=== PATIENT | male | born 1945 | race Caucasian/White ===

== ENCOUNTER 2018-05-02 06:55 | Day surgery (SDC) | payer OTHER ==
[2018-04-28 17:09] VITALS: BMI 28.0
[2018-05-02] MEDS ORDERED: oxyCODONE HCL 5 MG TABLET PO PRN (10:53)
[2018-05-02] MEDS ORDERED: ONDANSETRON 4 MG/2 ML VIAL IVPUSH PRN (10:53)
[2018-05-02] MEDS ORDERED: MIDAZOLAM HCL 2 MG/2 ML SINGLE DOSE VIAL ONE (10:57)
[2018-05-02] MEDS ORDERED: LACTATED RINGERS SOLUTION 1,000 ML IV SCH (11:00)
[2018-05-02] MEDS ORDERED: PROPOFOL 20 ML ONE (11:02)
[2018-05-02] MEDS ORDERED: ePHEDrine SULFATE 50 MG/1 ML AMPULE ONE (11:26)
--- NOTE | 2018-05-02 12:09 | OP ---
Operative Note - Note: Operative Date: 05/02/18 Pre-Operative Diagnosis: metastatic prostate cancer with right hydronephrosis with acute renal insufficiency Operation: cystoscopy/right retrograde pyelogram/right ureteroscy/right ureteral balloon dilation/right ureteral stent placement Findings: high grade distal right ureteral stricture Post-Operative Diagnosis: Same as Pre-op (right ureteral stricture) Surgeon: Jan Brown Anesthesia: General Drains & Tubes with Location: 10/17 right ureteral stent Operative Report Dictated: Yes
[2018-05-02 13:19] VITALS: TEMP 97.5
[2018-05-02 16:49] VITALS: BP 154/86; PULSE 59
--- NOTE | 2018-05-02 19:40 | OP ---
DATE OF OPERATION: 05/02/2018 PREOPERATIVE DIAGNOSES: Metastatic prostate cancer with right hydroureteronephrosis with acute renal insufficiency. POSTOPERATIVE DIAGNOSES: Metastatic prostate cancer with right hydroureteronephrosis with acute renal insufficiency, with a high-grade right ureteral stricture. ATTENDING: Pablo Stapleton MD ANESTHESIA: General. PROCEDURE: Cystoscopy, right retrograde pyelogram, right ureteroscopy, right ureteral balloon dilation, right ureteral stent placement. DESCRIPTION OF OPERATION: The patient has a history of metastatic prostate cancer. The patient developed renal insufficiency with a high-grade hydroureteronephrosis. On the CAT scan, there was no evidence of stone. There was a sharp cutoff of the ureter at the distal pelvic ureter. The patient accepts all risks and benefits for the procedure. The patient is brought in the operating room, placed in supine position on the operating room table. Anesthesia and preoperative antibiotics are administered to the patient. The patient is then placed in the dorsal lithotomy position and prepped and draped in the usual sterile manner. Cystoscopy is performed, and a mild urethral stricture is noted. The patient has a history of radiation therapy for the prostate cancer. The stricture is dilated with the scope. The bladder is inspected, and there is no evidence of stones or neoplasm within the bladder. Initially, an open-ended catheter was utilized, and a retrograde pyelogram showed a grade 4-5/5 hydroureteronephrosis with a sharp cutoff at the distal ureter. This was roughly 4 cm above the right ureteral orifice. At this point, multiple different wires were attempted without success. Ureteroscopy was then performed. Ureteroscopy brought the pinpoint opening into view, and with direct vision, the wire was passed with difficulty proximally. At this point, the wire was noted to be in the correct position within the renal pelvis as contrast material had entered the renal pelvis. With this accomplished, a balloon dilator was utilized, and the distal stricture was balloon dilated without complications. Utilizing the wire that was still in place, a 6-Thai 24-cm stent was placed utilizing the Seldinger technique over the wire. The 6-Thai 24-cm stent was found to be in excellent location on fluoroscopy. The case was concluded. Patient tolerated the procedure very well. There were no complications noted. The patient will be followed in the recovery room and ambulatory surgery. He will be discharged home if he continues to be stable. PABLO STAPLETON M.D. /[id number]
== END 2018-05-02 16:25 | disposition home or self-care (01) ==
LOC: JASU-SURG 06:55
PROVIDERS: ATTEND Urology
PROC: 0T768DZ Dilation of Right Ureter with Intraluminal Device, Via Natural or Artificial Opening Endoscopic (ICD-10-PCS; principal; 2018-05-02 10:00)
PROC: BT1DYZZ Fluoroscopy of Right Kidney, Ureter and Bladder using Other Contrast (ICD-10-PCS; 2018-05-02 10:00)
DX: C61 Malignant neoplasm of prostate (principal); N13.1 Hydronephrosis with ureteral stricture, not elsewhere classified; N28.9 Disorder of kidney and ureter, unspecified
CPT/HCPCS: 76000-TC-FY; 94760

== ENCOUNTER 2018-09-26 06:57 | Day surgery (SDC) | payer OTHER ==
[2018-09-23 15:36] VITALS: BMI 27.8
[~2018-09-26 06:57] MED LIST: IOHEXOL 300 MG/ML INFUS..BTL IV ONE
[2018-09-26] MEDS ORDERED: LIDOCAINE HCL/PF 2% SDV 5ML VIAL ONE (07:52)
[2018-09-26] MEDS ORDERED: PROPOFOL 20 ML ONE ×2 (07:52→07:53)
[2018-09-26] MEDS ORDERED: IOHEXOL 300 MG/ML INFUS..BTL IV ONE (09:05)
[2018-09-26] MEDS ORDERED: ACETAMINOPHEN 325 MG TABLET (FP) PO PRN (09:47)
[2018-09-26] MEDS ORDERED: ONDANSETRON 4 MG/2 ML VIAL IVPUSH PRN (09:47)
[2018-09-26] MEDS ORDERED: LACTATED RINGERS SOLUTION 1,000 ML IV SCH (10:00)
--- NOTE | 2018-09-26 10:24 | OP ---
Operative Note - Note: Operative Date: 09/26/18 Pre-Operative Diagnosis: metastatic prostate cancer/right ureteral stricture/ chronic kidney disease/urethral stricture Operation: cystoscopy/urethral dilation/right ureteroscopy/right ureteral stent exchange/right retrograde pyelogram Findings: urethral and right ureteral strictures Post-Operative Diagnosis: Same as Pre-op Surgeon: Jan Brown Anesthesia: General Specimens Removed: right ureteral stent Drains & Tubes with Location: 10/17 right ureteral stent Operative Report Dictated: Yes
[2018-09-26] MEDS ORDERED: ONDANSETRON 4 MG/2 ML VIAL ONE (12:26)
[2018-09-26 13:18] VITALS: BP 148/68; PULSE 66; TEMP 97.5
--- NOTE | 2018-09-26 22:26 | OP ---
DATE OF OPERATION: 09/26/2018 PREOPERATIVE DIAGNOSES: Metastatic prostate cancer, right ureteral stricture, chronic kidney disease, and urethral stricture. POSTOPERATIVE DIAGNOSES: Metastatic prostate cancer, right ureteral stricture, chronic kidney disease, and urethral stricture. PROCEDURE: Cystoscopy, urethral dilation, right ureteroscopy, right ureteral stent exchange, right retrograde pyelogram. ATTENDING: Pablo Stapleton MD ANESTHESIA: General. DESCRIPTION OF OPERATION: The patient was brought in the operating room, placed in supine position on the operating room table. The patient was given general anesthesia and preoperative antibiotics. The patient has a history of metastatic prostate cancer and is status post radiation therapy. The patient has had recurrent urethral strictures in the past. Patient also has a distal right ureteral stricture which has led to chronic kidney disease with hydronephrosis. The patient has had previous procedures involving balloon dilation of the right ureter. Patient has been maintained with a ureteral stent. The patient understands all risks and benefits of the procedure. The patient was placed in the dorsal lithotomy position, prepped and draped in the usual sterile manner. Cystoscopy was attempted. However, high-grade bulbous urethral stricture was noted. A wire was passed into the bladder under fluoroscopic visualization. At this point, dilators were utilized, and the urethra was dilated to 24-Syrian. Still with significant difficulty, cystoscopy was accomplished, and the bladder was entered. A wire was passed proximally into the right ureter. With the passage of the wire, the stricture was so tight that the wire was pushing the stent proximally. It was decided to perform an ureteroscopy in order to dilate the ureteral stricture. Initially, the stent was removed under cystoscopic visualization. With the wire in place, ureteroscopy was then performed. A dense stricture of the distal ureter was encountered. The stricture was dilated with the ureteroscope. With this accomplished, the ureteroscope was removed. It must be noted that a retrograde pyelogram was performed through the ureteroscope. A hydronephrosis was noted up to the point of the dense ureteral stricture. At this point, the cystoscope was then placed. Utilizing Seldinger technique, a 6-Syrian 24-cm stent was placed. Stent was placed into the kidney. No complications were noted. Because of the high-grade stricture that was noted, a Silastic catheter was left in place. This will be left for 1 week. Patient tolerated the procedure very well. No complications were noted. PABLO STAPLETON M.D. [id number]
--- NOTE | 2018-09-27 17:16 | PATH ---
Surgical Pathology Report Patient Name: NATO CAMPOS Med. Rec. #: [id number] /Age/Gender: 1945 (Age: 73) / M Account: [id number] Location: [facility] Taken: 09/26/2018 Received: 09/26/2018 Reported: 09/27/2018 Physicians: Jan Brown Specimen(s) Received RIGHT URETERAL STENT Clinical History Metastatic prostate cancer Final Diagnosis RIGHT URETERAL STENT, REMOVAL: CONSISTENT WITH URETERAL STENT. GROSS EXAMINATION ONLY. Electronically Signed Wendy Pacheco M.D. Gross Description Received fresh labeled "right ureteral stent," is a 35 cm in length yellow-green, coiled portion of tubing, consistent with a ureteral stent. No soft tissue is present. No sections are submitted, gross only. /09/26/2018 saudi09/26/2018
== END 2018-09-26 13:10 | disposition home or self-care (01) ==
LOC: JASU-SURG 06:57
PROVIDERS: ATTEND Urology
PROC: 0T768DZ Dilation of Right Ureter with Intraluminal Device, Via Natural or Artificial Opening Endoscopic (ICD-10-PCS; 2018-09-26)
PROC: BT1DYZZ Fluoroscopy of Right Kidney, Ureter and Bladder using Other Contrast (ICD-10-PCS; 2018-09-26)
PROC: 0T7D8DZ Dilation of Urethra with Intraluminal Device, Via Natural or Artificial Opening Endoscopic (ICD-10-PCS; principal; 2018-09-26 08:00)
PROC: 0T768DZ Dilation of Right Ureter with Intraluminal Device, Via Natural or Artificial Opening Endoscopic (ICD-10-PCS; 2018-09-26 08:00)
PROC: 0TP98DZ Removal of Intraluminal Device from Ureter, Via Natural or Artificial Opening Endoscopic (ICD-10-PCS; 2018-09-26 08:00)
DX: C61 Malignant neoplasm of prostate (principal); N35.819 Other urethral stricture, male, unspecified site
CPT/HCPCS: 76000-TC-FY; 88300-TC; 94760